=== PATIENT | male | born 1985 | race Hispanic/Latino ===

== ENCOUNTER 2024-01-21 17:20 | Emergency (ER) | payer BC ==
[~2024-01-21] VITALS: Ht 180.3 cm; Wt 74.8 kg
[2024-01-22] MEDS: LIDOCAINE HCL 1% 20 ML VIAL INJ SCH (01:05)
[2024-01-22] MEDS ORDERED: CEPH500B PO (01:28)
[2024-01-22] MEDS: CEFAZOLIN SODIUM 1 GM VIAL IM SCH (01:28)
[2024-01-22] MEDS: TETANUS/DIPHTHERIA TOXOID [ADULT] 0.5 ML VIAL IM ONE (01:51)
[2024-01-22 02:00] VITALS: BP 136/62; PULSE 90; RESP 20; O2SAT 98
== END 2024-01-22 02:02 | disposition home or self-care (01) ==
LOC: EDH 17:20
DX: S61.210A Laceration without foreign body of right index finger without damage to nail, initial encounter (principal); X58.XXXA Exposure to other specified factors, initial encounter; Y93.89 Activity, other specified; Y92.89 Other specified places as the place of occurrence of the external cause; Y99.8 Other external cause status
CPT/HCPCS: 99284; 73140; 90714; 96372; 90471; 12001; J0690

== ENCOUNTER 2024-03-09 20:55 | Emergency (ER) | payer BC ==
[~2024-03-09] VITALS: Ht 180.3 cm; Wt 70.3 kg
[~2024-03-09 20:55] MED LIST: CEPH500B PO
[2024-03-09] MEDS ORDERED: IBUP-2070 PO (22:57)
[2024-03-09] MEDS: HYDROCODONE/ACETAMINOPHEN 5/325 MG TAB PO ONE (23:13)
[2024-03-09] MEDS: ONDANSETRON ODT 4MG TAB SL ONE (23:14)
[2024-03-09] MEDS: IBUPROFEN 600 MG TABLET PO ONE (23:14)
[2024-03-09] MEDS: FAMOTIDINE 20MG TAB PO ONE (23:14)
[2024-03-09 23:32] VITALS: BP 135/80; PULSE 80; RESP 20; O2SAT 100
== END 2024-03-09 23:37 ==
LOC: EDH 20:55 → EEVIPCON 20:55 → EDH 23:37
DX: S22.41XA Multiple fractures of ribs, right side, initial encounter for closed fracture (principal); Z98.890 Other specified postprocedural states; W18.39XA Other fall on same level, initial encounter; Y93.89 Activity, other specified; Y92.89 Other specified places as the place of occurrence of the external cause; Y99.8 Other external cause status
CPT/HCPCS: 71110

== ENCOUNTER 2025-04-21 21:08 | Emergency (ER) | payer BC ==
[~2025-04-21] VITALS: Ht 180.3 cm; Wt 70.3 kg
[~2025-04-21 21:08] MED LIST changes: +IBUP-2070 PO
[2025-04-21 21:09] VITALS: TEMP 96.8
[2025-04-21] MEDS: ondanSETRON 4MG INJ IVP ONE (21:28)
[2025-04-21 21:29] LABS: BASOPHILS # (AUTO) 0.02 K/uL (0.00-0.20); BASOPHILS % (AUTO) 0.5 % (0.0-5.0); EOSINOPHILS # (AUTO) 0.02 K/uL (0.00-0.70); EOSINOPHILS % (AUTO) 0.5 % (0.0-8.0); HEMATOCRIT 38.4 % (42-54); LYMPHOCYTES # (AUTO) 0.8 K/uL (1.0-4.8); LYMPHOCYTES % (AUTO) 22.2 % (21.0-51.0); MEAN CORPUSCULAR HEMOGLOBIN 30.1 pg (27.0-33.0); MEAN CORPUSCULAR HGB CONC 34.4 g/dL (32.0-36.0); MEAN CORPUSCULAR VOLUME 87.5 fL (79-99); MONOCYTES # (AUTO) 0.5 K/uL (0.1-1.0); NEUTROPHILS # (AUTO) 2.4 K/uL (1.8-7.7); NEUTROPHILS % (AUTO) 63.8 % (40.0-77.0); PLATELET COUNT (AUTO) 93 K/uL (130-400); RED BLOOD CELL COUNT(AUTO) 4.39 MIL/uL (4.50-6.20); RED CELL DISTRIBUTION WIDTH 13.2 % (11.0-15.5); WHITE BLOOD COUNT (AUTO) 3.8 K/uL (4.8-10.8)
[2025-04-21] MEDS: 0.9%NACL 1000ML 1,000 ML IV ONE (21:29)
[2025-04-21 21:40] LABS: CREATININE 1.4 mg/dL (0.5-1.3); POTASSIUM 3.1 mmol/L (3.5-5.1)
[2025-04-21] MEDS: PoTASSium BIcarbonate/CIT AC 25 MEQ TABLET.EFF PO ONE (22:48)
--- NOTE | 2025-04-21 23:18 | ERN ---
General Chief Complaint: Overdose Stated Complaint: ETOH INGESTION, SMOKED SPICE, EMESIS X 1 Time Seen by MD: 21:13 Time Seen by Midlevel: 21:13 Source: patient History of Present Illness Initial Comments The patient is a 40-year-old male being brought in by EMS for evaluation of alcohol abuse. According to EMS the patient was picked up by police after being called onto the seen for an altercation. Per PD the patient was fighting with himself. He had one episode of vomiting with PD. According to EMS the patient consumed alcohol and smokes spice a proximally 1.5 hours prior to arrival. On arrival the patient is specifically denies any drug and alcohol use. He is refusing to provide a urine sample. The patient is in different about being evaluated in the emergency department. He is answering all my questions appropriately. He has no complaints on arrival. Allergies: Coded Allergies: No Known Drug Allergies (Unverified Allergy, Unknown, 01/21/24) Home Meds Active Scripts Ibuprofen (Ibuprofen) 600 Mg Tablet, 600 MG PO Q6H PRN for PAIN, #30 TAB Prov:CHRISTIANO CEBALLOS [employer] 03/09/24 Cephalexin Monohydrate (Keflex) 500 Mg Cap, 500 MG PO TID for 7 Days, #21 CAP Prov:NATE APONTE V [employer] 01/22/24 Past Medical History Past Medical History: No Pertinent History Past Surgical History: Other Surgical History Other: RIGHT LEG SX SKIN REPAIR Family History Family History: Negative Social History Social History: Negative, Lives with family ROS Dictation CONSTITUTIONAL: Negative except for HPI HEAD/FACE: Negative except for HPI EENT: Negative except for HPI RESPIRATORY: Negative except for HPI GASTROINTESTINAL/ABDOMINAL: Negative except for HPI GENITOURINARY: Negative except for HPI MUSCULOSKELETAL: Negative except for HPI INTEGUMENTARY: Negative except for HPI NEUROLOGICAL/PSYCH: Negative except for HPI HEMATOLOGIC/LYMPHATIC: Negative except for HPI All Systems Negative, Except as noted above. 13 point review of systems assessed and all negative except for above. Physical Exam Physical Exam Dictation Vital Signs reviewed General Appearance: Alert, oriented x 3, no acute distress, appears drowsy but is able to answer questions appropriately and follow my commands Head and Face: non-traumatic. Eyes: PERRL, pink conjunctivas, eyelid no trauma, anterior chamber with arcus senilis. Ears: Pinnas intact and no signs of trauma or erythema ear canals clear and no discharge TM no erythema Nose: No discharge, no bleeding. Oropharynx: Mouth normal, tongue pink, pharynx clear,no erythema, tonsils no exudates, no abscesses noted, mucous membrane moist Neck: Supple, non-tender, no thyromegaly, no masses, no JVD, no bruits Breast:Deferred Chest:No tenderness, no crepitus, no paradoxical movement, no retractions Lungs:Clear, well-ventilated, symmetric, no rales, no wheezing, no rhonchi, no stridor, good breath sounds bilaterally Heart: Regular rate, regular rhythm, no murmur, no gallops Vascular: no peripheral edema, Abdomen: Soft, positive bowel sounds, nondistended, no guarding, nontender, no rebound, no masses no hepatomegaly, no splenomegaly, no Gomes's sign, no hernias. Rectal: Deferred Genital: Deferred Neurological: Normal speech, motor function intact, sensory function intact Musculoskeletal: Neck nontender, full range of motion, back nontender, full range of motion, Extremities: nontender, full range of motion Skin: Color pink, dry, no turgor, no rash, no lacerations, no abrasions, no contusions. Lymphatic: Deferred Results Laboratory and Microbiology Lab and Micro Result Laboratory Tests Test 04/21/25 21:23 White Blood Count 3.8 K/uL (4.8-10.8) L Red Blood Count 4.39 MIL/uL (4.50-6.20) L Hemoglobin 13.2 g/dL (14.0-18.0) L Hematocrit 38.4 % (42-54) L Mean Corpuscular Volume 87.5 fL (79-99) Mean Corpuscular Hemoglobin 30.1 pg (27.0-33.0) Mean Corpuscular Hemoglobin Concent 34.4 g/dL (32.0-36.0) Red Cell Distribution Width 13.2 % (11.0-15.5) Platelet Count 93 K/uL (130-400) L Mean Platelet Volume 12.9 fL (7.5-10.5) H Immature Granulocyte % (Auto) 0.0 % (0-1) Neutrophils (%) (Auto) 63.8 % (40.0-77.0) Lymphocytes (%) (Auto) 22.2 % (21.0-51.0) Monocytes (%) (Auto) 13.0 % (3.0-13.0) Eosinophils (%) (Auto) 0.5 % (0.0-8.0) Basophils (%) (Auto) 0.5 % (0.0-5.0) Neutrophils # (Auto) 2.4 K/uL (1.8-7.7) Lymphocytes # (Auto) 0.8 K/uL (1.0-4.8) L Monocytes # (Auto) 0.5 K/uL (0.1-1.0) Eosinophils # (Auto) 0.02 K/uL (0.00-0.70) Basophils # (Auto) 0.02 K/uL (0.00-0.20) Absolute Immature Granulocyte (auto 0.00 K/uL (0-1) Nucleated Red Blood Cells 0.0 % (0.0-0.19) Sodium Level 141 mmol/L (136-145) Potassium Level 3.1 mmol/L (3.5-5.1) L Chloride Level 106 mmol/L (101-111) Carbon Dioxide Level 27 mmol/L (21-32) Blood Urea Nitrogen 22 mg/dL (7-18) H Creatinine 1.4 mg/dL (0.5-1.3) H Glomerular Filtration Rate Calc 65 mL/min (>90) Random Glucose 109 mg/dL (70-105) H Total Calcium 7.6 mg/dL (8.5-10.1) L Labs Reviewed?: Yes MDM MDM: Differential diagnosis: Drug abuse, alcohol intoxication, substance abuse, dehydration There are no social concerns with this patient. Prescription drug management Prescriptions will include: None Medical management and examination interpretation discussions were had by me with other qualified healthcare professionals as indicated for the patient's care. ED Course Orders Procedure Category Date Status Time Cbc With Differential LAB 04/21/25 Complete 21:20 Basic Metabolic Panel LAB 04/21/25 Complete 21:20 0.9%Nacl 1000ml (Ns PHA 04/21/25 Complete 1000ml) 21:30 Ondansetron 4mg Inj PHA 04/21/25 Complete (Zofran 4mg Inj) 21:30 Potassium Bicarb/Cit PHA 04/21/25 Complete Ac 25meq (K-Lyte Ta 22:00 Current Medications Medications (Trade) Dose Ordered Sig/Jannette Route PRN Reason Start Time Stop Time Status Last Admin Dose Admin Ondansetron HCl (zoFRAN 4MG INJ) 4 mg ONCE ONCE IVP 04/21/25 21:30 04/21/25 21:31 DC 04/21/25 21:28 Potassium Bicarbonate (K-Lyte Tablet Eff 25 Meq Tablet.eff) 25 meq ONCE ONCE PO 04/21/25 22:00 04/21/25 22:01 DC 04/21/25 22:48 Sodium Chloride 1,000 ml @ 0 mls/hr ONCE ONCE IV 04/21/25 21:30 04/21/25 21:31 DC 04/21/25 21:29 Vital Signs Date Time Temp Pulse Resp B/P (MAP) Pulse Ox O2 Delivery O2 Flow Rate FiO2 04/21/25 21:20 97 14 110/70 98 Room Air* 0 21 04/21/25 21:09 96.8 108 16 112/74 98 Room Air 0 DX & DISP Disposition: Discharge Departure Impression: Primary Impression: Hypokalemia Additional Impression: Mild dehydration Condition: Stable Referrals: SELF,REFERRAL (PCP) I have reviewed the case, and I agree with, Diagnosis and Plan I performed the substantive portion of the visit. I have reviewed and personally made and approve the management plan that is documented in the note by myself or the GEO. I acknowledge for responsibility for the patient's management plan. CHRIS WARREN April 21, 2025 23:18
[2025-04-21 23:24] VITALS: BP 116/80; PULSE 72; RESP 14; O2SAT 98
== END 2025-04-21 23:34 | disposition home or self-care (01) ==
LOC: EDH 21:08
DX: E86.0 Dehydration (principal); E87.6 Hypokalemia; F17.200 Nicotine dependence, unspecified, uncomplicated; Z79.899 Other long term (current) drug therapy; Z98.890 Other specified postprocedural states
CPT/HCPCS: 99284; 96374; 96361; 80048; 85025; 36415; J7030; J2405